=== PATIENT | female | born 2000 | race Caucasian/White ===

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

== ENCOUNTER 2018-06-22 21:02 | Emergency (ER) | payer MEDICAID ==
[2018-06-22 21:25] VITALS: BP 132/80
--- NOTE | 2018-06-22 22:19 | ER Document Report ---
ED Medical Screen (RME) - General Chief Complaint: Vaginal Bleeding Stated Complaint: VAGINAL PAIN Time Seen by Provider: 06/22/18 22:17 Notes: 17-year-old female with chief complaint of having a gush of heavy bleeding at home where she bled all over herself and passed clots and possible tissue, reports that she is having pain in her lower abdomen as well, bleeding has slowed significantly now. LMP last month. Not on control. Sexually active. Denies fever, vomiting, discharge. Denies trauma. TRAVEL OUTSIDE OF THE [place] IN LAST 30 DAYS: No - Related Data Allergies/Adverse Reactions: No Known Allergies Allergy (Unverified 10/25/17 17:55) Past Medical History Renal/ Medical History: Denies: Hx Peritoneal Dialysis Past Surgical History: Reports: Hx Tonsillectomy Physical Exam - Vital signs Vitals: Temp Pulse Resp BP Pulse Ox 98.1 F 115 H 18 132/80 H 98 06/22/18 21:21 06/22/18 21:21 06/22/18 21:21 06/22/18 21:21 06/22/18 21:21 - General General appearance: Appears well In distress: None - Abdominal Tenderness: Tender - Minimal lower abdominal tenderness without guarding or rigidity, exam limited by sitting position Course - Vital Signs Vital signs: Temp Pulse Resp BP Pulse Ox 98.1 F 115 H 18 132/80 H 98 06/22/18 21:21 06/22/18 21:21 06/22/18 21:21 06/22/18 21:21 06/22/18 21:21
--- NOTE | 2018-06-22 23:44 | RADIOLOGY REPORT (SQ) ---
EXAM DESCRIPTION: US TRANSVAGINAL COMPLETED DATE/TME: 06/22/2018 22:17 CLINICAL HISTORY: 17 years, Female, abnormal heavy bleeding and pelvic pain COMPARISON: None. TECHNIQUE: Transverse and longitudinal transvaginal sonographic images of the pelvis LIMITATIONS: None. FINDINGS: The uterus measures 7.9 x 3.7 x 4.3 cm. The myometrium is homogenous. The endometrium measures 1.8 mm in thickness. Nabothian cysts are present. The right ovary measures 3.4 x 1.7 x 4.0 cm. The left ovary measures 3.7 x 2.5 x 2.6 cm. Doppler and spectral analysis with color flow was utilized. Arterial and venous flow to both ovaries. Bilateral ovarian follicles. In addition there is a simple appearing 2.3 x 1.9 cm right paraovarian cyst. No solid adnexal mass. No free fluid. IMPRESSION: Simple appearing right paraovarian cyst. Remainder is unremarkable copyright 2010 [employer]- All Rights Reserved
[2018-06-23] LABS: ABSOLUTE BASOPHILS # (AUTO) 0.1 10^3/uL (0.0-0.2); ABSOLUTE EOSINOPHILS # (AUTO) 0.2 10^3/uL (0.0-0.6); ABSOLUTE LYMPHOCYTES (AUTO) 3.4 10^3/uL (0.5-4.7); ABSOLUTE MONOCYTES (AUTO) 0.7 10^3/uL (0.1-1.4); ABSOLUTE NEUT (AUTO) 6.5 10^3/uL (1.7-8.2); BASOPHILS % (AUTO) 1.2 % (0-2); EOSINOPHILS % (AUTO) 1.4 % (0-6); HEMATOCRIT 38.6 % (36.0-47.0); HEMOGLOBIN 12.9 g/dL (12.0-15.5); MEAN CORPUSCULAR HEMOGLOBIN 27.3 pg (27.0-33.4); MEAN CORPUSCULAR HGB CONC 33.5 g/dL (32.0-36.0); MEAN CORPUSCULAR VOLUME 82 fl (80-97); MONOCYTES % (AUTO) 6.2 % (3-13); PLATELET COUNT 243 10^3/uL (150-450); RED BLOOD COUNT 4.73 10^6/uL (3.72-5.28); RED CELL DISTRIBUTION WIDTH 13.7 % (11.5-14.0); SEGMENTED NEUTROPHILS % (AUTO) 60.2 % (42-78); TOTAL CELLS COUNTED % (AUTO) 100 %; WHITE BLOOD COUNT 10.9 10^3/uL (4.0-10.5)
--- NOTE | 2018-06-23 00:44 | ER Document Report ---
ED GI/ - General Mode of Arrival: Ambulatory Information source: Patient TRAVEL OUTSIDE OF THE [place] IN LAST 30 DAYS: No <KOBI LIRA - Last Filed: 06/23/18 03:24> <ROSA MARIA DSOUZA - Last Filed: 06/23/18 05:09> - General Chief Complaint: Vaginal Bleeding Stated Complaint: VAGINAL PAIN Time Seen by Provider: 06/22/18 22:17 Notes: 17 year old female that presents to the emergency department today with complaints of abdominal pain, vaginal pressure, vaginal bleeding, and nausea. Patient states that today she started having vaginal bleeding and was passing large clots. Patient states she has very irregular periods and her last period was 2-4 weeks ago. (KOBI LIRA) - Related Data Allergies/Adverse Reactions: No Known Allergies Allergy (Unverified 10/25/17 17:55) Past Medical History - General Information source: Patient - Social History Smoking Status: Unknown if Ever Smoked Cigarette use (# per day): No Frequency of alcohol use: None Drug Abuse: None Lives with: Family Family History: Reviewed & Not Pertinent Patient has suicidal ideation: No Patient has homicidal ideation: No Renal/ Medical History: Denies: Hx Peritoneal Dialysis Past Surgical History: Reports: Hx Tonsillectomy <KOBI LIRA - Last Filed: 06/23/18 03:24> Review of Systems - Review of Systems Constitutional: No symptoms reported EENT: No symptoms reported Cardiovascular: No symptoms reported Respiratory: No symptoms reported Gastrointestinal: See HPI, Abdominal pain, Nausea Genitourinary: No symptoms reported Female Genitourinary: See HPI, Vaginal bleeding Musculoskeletal: No symptoms reported Skin: No symptoms reported Hematologic/Lymphatic: No symptoms reported Neurological/Psychological: No symptoms reported -: Yes All other systems reviewed and negative <KOBI LIRA - Last Filed: 06/23/18 03:24> Physical Exam <KOBI LIRA - Last Filed: 06/23/18 03:24> <ROSA MARIA DSOUZA - Last Filed: 06/23/18 05:09> - Vital signs Vitals: Temp Pulse Resp BP Pulse Ox 98.1 F 115 H 18 132/80 H 98 06/22/18 21:21 06/22/18 21:21 06/22/18 21:21 06/22/18 21:21 06/22/18 21:21 - Notes Notes: PHYSICAL EXAM GENERAL: Alert, interacts well. No acute distress. Obese. HEAD: Normocephalic, atraumatic. EYES: Pupils equal, round, and reactive to light. Extraocular movements intact. ENT: Oral mucosa moist, tongue midline. NECK: Full range of motion. Supple. Trachea midline. LUNGS: Clear to auscultation bilaterally, no wheezes, rales, or rhonchi. No respiratory distress. HEART: Mild tachycardia, regular rhythm. No murmurs, gallops, or rubs. ABDOMEN: Soft, non-tender. Non-distended. Bowel sounds present in all 4 quadrants. No guarding, rigidity, or rebound. EXTREMITIES: Moves all 4 extremities spontaneously. No edema, radial and dorsalis pedis pulses 2/4 bilaterally. No cyanosis. NEUROLOGICAL: Alert and oriented x3. Normal speech. PSYCH: Normal affect, normal mood. SKIN: Warm, dry, normal turgor. No rashes or lesions noted. (KOBI LIRA) Course - Laboratory Result Diagrams: 06/22/18 23:48 <KOBI LIRA - Last Filed: 06/23/18 03:24> - Laboratory Result Diagrams: 06/22/18 23:48 <ROSA MARIA DSOUZA - Last Filed: 06/23/18 05:09> - Re-evaluation Re-evalutation: 06/23/18 00:49 test is negative, US does not show retained products of conception, thickened endometrium or any other signs of miscarriage. Patient is on anemic. Discussed with patient that with her consistently irregular menses she should follow-up with a sustainable landscape architect for workup for possible polycystic ovarian syndrome. Patient will be given Toradol for pain. Patient will be discharged home. Patient is instructed to return should she bleed through more than 1 pad or tampon an hour for 4 hours or more. (ROSA MARIA DSOUZA) - Vital Signs Vital signs: Temp Pulse Resp BP Pulse Ox 98.1 F 115 H 18 132/80 H 98 06/22/18 21:21 06/22/18 21:21 06/22/18 21:21 06/22/18 21:21 06/22/18 21:21 - Laboratory Laboratory results interpreted by me: 06/22/18 06/23/18 23:48 00:11 WBC 10.9 H Urine Protein 30 H Urine Blood LARGE H Discharge <KOBI LIRA - Last Filed: 06/23/18 03:24> <ROSA MARIA DSOUZA - Last Filed: 06/23/18 05:09> - Discharge Clinical Impression: Menometrorrhagia Condition: Stable Disposition: HOME, SELF-CARE Additional Instructions: Vaginal Bleeding You are having an episode of abnormal bleeding. Causes of abnormal vaginal bleeding can include miscarriage or tubal , tumors such as cancer or benign fibroids, medication effects, or hormone imbalance. Testing can eliminate unsuspected , tumors, or infection as a cause. "Dysfunctional uterine bleeding" is due to hormone imbalance, and is especially common at times when the normal cycle is disturbed -- whether by recent , use of control pills or hormones, or impending menopause. If the bleeding is innocent, most commonly a short course of hormones is given to restore the uterus to normal. Sometimes, the normal menstrual cycle corrects itself naturally. Sometimes , brief hormone therapy, or even a D&C is required. Your physician will advise you. Treatment for anemia may be required if bleeding is severe. You should rest and avoid intercourse until the bleeding is controlled. Call the doctor or return for re-examination if you feel faint, have increasing pain, or have a major increase in the amount of bleeding. I am concerned you may have polycystic ovarian syndrome. This can cause irregular vaginal bleeding and frequent abdominal pain from cysts. It is important that you follow-up with a sustainable landscape architect to work of your irregular bleeding further. Please return to the emergency department should you bleed through one or more tampon or pad per hour for 4 hours or more. Referrals: [facility] [Provider Group] - Follow up as needed Scribe Attestation: 06/23/18 05:09 I personally performed the services described in the documentation, reviewed and edited the documentation which was dictated to the scribe in my presence, and it accurately records my words and actions. (ROSA MARIA DSOUZA) Scribe Documentation - Scribe Written by Tanisha:: Tanisha Finnegan, 06/23/2018 [id number] acting as scribe for :: Andrew <KOBI LIRA - Last Filed: 06/23/18 03:24>
[2018-06-23] MEDS ORDERED: KETOROLAC TROMETHAMINE 60 MG/2 ML SDV IM ONE (00:50)
[2018-06-23 01:08] LABS: APPEARANCE,URINE CLEAR; BILIRUBIN,URINE NEGATIVE (NEGATIVE); COLOR,URINE YELLOW; GLUCOSE, URINE NEGATIVE (NEGATIVE); KETONES,URINE NEGATIVE (NEGATIVE); LEUKOCYTE ESTERASE,URINE NEGATIVE (NEGATIVE); NITRITE,URINE NEGATIVE (NEGATIVE); PROTEIN,URINE 30 mg/dL (NEGATIVE); URINE SPECIFIC GRAVITY 1.024; UROBILINOGEN,URINE NEGATIVE mg/dL (<2.0)
== END 2018-06-23 01:20 | disposition home or self-care (01) ==
LOC: ER 21:02
DX: N92.1 Excessive and frequent menstruation with irregular cycle (principal); R11.0 Nausea; R10.2 Pelvic and perineal pain; R00.0 Tachycardia, unspecified
CPT/HCPCS: 36415; 76830; 81001; 84703; 85025; 93976; 99284